=== PATIENT | male | born 2000 | race Caucasian/White ===

== ENCOUNTER 2022-11-23 19:44 | Emergency (ER) | payer MEDICAID, SELFPAY ==
[2022-11-23 19:45] VITALS: BP 140/81; PULSE 123; RESP 18; TEMP 36.8; O2SAT 96; BMI 42.0
--- NOTE | 2022-11-23 19:58 | ED.VIS.GI ---
HPI HPI - GI History of Present Illness Chief Complaint: Diarrhea Informant: patient and parent Narrative Narrative: Patient presents with nausea vomiting diarrhea. Patient states he started with some diarrhea yesterday morning. He also had some nausea with it. He did vomit. But he was able to eat ham some vegetables and mashed potatoes tonight and he kept it down. He denies known fever but has felt hot and cold at times. He thinks this is related to eating bad pizza. However his mother also had nausea vomiting diarrhea that lasted for about a day or 2 last week. Her symptoms are resolved. He does have abdominal pain but describes it as diffuse all over and is never localized. He does not have it now. He has never had abdominal surgery. He has no history of Crohn's or ulcerative colitis in the family. He has had no trauma. He thinks he has had slightly less urine output than normal but no dysuria or odor. Shortly before arrival he had a bowel movement that had some streaks of red blood in it. That is what prompted him to come in now. He has never vomited blood. He has no history of ulcer disease. No known history of any AVMs or other intra-abdominal process/abnormality. [facility] Medical History (Updated 11/23/22 @ 21:[address] Saman Becerra MD) ADHD Home Medications ondansetron 4 mg disintegrating tablet 4 mg PO Q8H PRN PRN Nausea #10 tabs 11/23/22 [Rx Last Taken Unknown] Allergy/AdvReac Type Severity Reaction Status Date / Time No Known Allergies Allergy Verified 11/23/22 19:44 Social History Smoking Status: Never smoker ROS ROS ED ROS Narrative A complete review of systems was performed and is negative except as documented in the history of present illness. Some specific details below. Constitutional: No recent fevers but he has felt hot and cold at times. EYE: No visual complaints or pain. No change in eye color. ENT: No difficulty swallowing. No swelling. No pain. Denies symptoms consistent with GERD. CV: No chest pain or palpitations. Respiratory: No dyspnea. No hemoptysis. No difficulty taking breaths. GI: Please see history of present illness. : No frequency dysuria or hematuria. He thinks he is actually urinating a little bit less than normal. But no change in color. Musculoskeletal: No recent trauma. No pains. Skin: No rash. Nondiaphoretic. Neuro: No weakness or numbness. Endocrine: No polyuria or polydipsia. EXAM Physical Exam Narrative Exam Narrative: CONSTITUTIONAL: Patient is nontoxic in appearance. The patient looks comfortable. HEENT: No notable trauma. Mucous membranes mildly dry. EYES: No conjunctival injection. No icterus. CARDIOVASCULAR: Regular rate at this time. It is about 95. Regular rhythm. No notable murmur. No JVD. RESPIRATORY: No respiratory distress. Breathing is unlabored. No wheezes. No rhonchi. No rales. No pain with a deep breath. GASTROINTESTINAL: Obese but not distended. Bowel sounds are normal. No tenderness. No guarding. No rebound. No palpable mass. No bruit. His exam is actually quite benign. GENITOURINARY: No tenderness over the bladder. No CVA tenderness. MUSCULOSKELETAL: Atraumatic. No peripheral edema. NEUROLOGICAL: Patient is alert and appropriate. No focal deficit noted. SKIN: No noted rashes. No diaphoresis. PSYCHIATRIC: Patient is calm. Mood is appropriate. Const Vital Signs: 11/23/22 19:45 11/23/22 20:27 11/23/22 20:55 Temperature 98.2 F Temperature Source Temporal Pulse Rate 123 H 106 H Respiratory Rate 18 16 16 Blood Pressure 140/81 H 124/77 H Blood Pressure Mean 100 92 Pulse Ox 96 100 Oxygen Delivery Method Room Air MDM MDM MDM Narrative Medical decision making narrative: Patient CBC is normal other than slightly high hemoglobin likely due to some hemoconcentration.Patient CBC is normal other than slightly high hemoglobin likely due to some hemoconcentration. Lites and white count are normal. Patient's electrolytes show mildly low potassium which was replaced. Renal function was preserved. Glucose is only minimally high at 112. Liver function test showed nonspecific elevation of AST and ALT. Alkaline phosphatase is normal. He has no right upper quadrant tenderness. Patient's lipase is normal. Patient is given IV fluids. When I went in to see him he is drinking water and eating ice. He states he feels fine and wants to go. He does not even want to wait for the IV fluids. I will write for some Zofran. I think this is likely viral since he had chills earlier on and his mother had some similar symptoms. If he has further bleeding, lightheadedness, worsening fevers constant pain or localization of pain or other concerns he should return. Lab Data Attestation: I reviewed the patient's lab results. Labs: Laboratory Results - last 24 hr 11/23/22 20:24 WBC 8.9 RBC 5.78 Hgb 17.9 H Hct 50.0 MCV 86.5 MCH 31.0 MCHC 35.8 RDW Std Deviation 37.6 RDW Coeff of Chiquita 11.9 Plt Count 255 MPV 10.5 Immature Gran % (Auto) 0.300 Neut % (Auto) 64.0 Lymph % (Auto) 18.4 L Boundary % (Auto) 11.9 H Eos % (Auto) 4.8 Baso % (Auto) 0.6 Absolute Neuts (auto) 5.7 Absolute Lymphs (auto) 1.64 Nucleated RBC % 0 Sodium 138 Potassium 3.2 L Chloride 108 H Carbon Dioxide 21.0 Anion Gap 9 BUN 11 Creatinine 0.73 Estim Creat Clear Calc 145.66 Est GFR (MDRD) Af Amer 174 Est GFR (MDRD) Non-Af 144 BUN/Creatinine Ratio 15.0 Glucose 112 H Calcium 8.8 Total Bilirubin 0.80 AST 63 H ALT 152 H Alkaline Phosphatase 72 Total Protein 7.7 Albumin 3.6 Globulin 4.1 Albumin/Globulin Ratio 0.9 Lipase 14 EKG Initial EKG: Comments: My independent interpretation the patient's EKG shows sinus rhythm with tachycardic rate at 105. No ventricular ectopy. No preexcitation. No acute ST elevation or depression. GA interval, QRS duration and QTc are normal. Discharge Plan Triage Chief Complaint: Diarrhea ED Provider: Saman Becerra Dx/Rx/DC Orders Clinical Impression: Nausea vomiting and diarrhea, Mild dehydration, Hypokalemia Instructions: ED Diet Vomiting Diarrhea Prescriptions: New ondansetron [ondansetron] 4 mg tablet,disintegrating 4 mg PO Q8H PRN PRN (Reason: Nausea) Qty: 10 0RF Primary Care Provider: Care Physician,No Primary Referrals: Olivia Eubanks DO [Med Staff - Active Staff] - 3-5 Days if not improving Care Physician,No Primary [Primary Care Provider] - Disposition Disposition: Home, Self Care
[2022-11-23] MEDS: 0.9% Normal Saline 1,000 ML 1000 ML IV (20:23)
[2022-11-23] MEDS: Ondansetron 4 MG/2 ML Vial IV (20:23)
[2022-11-23 20:27] VITALS: RESP 16
[2022-11-23 20:29] LABS: Absolute Lymphocyte Count 1.64 X10^3/uL (0.83-4.51); Absolute Neutrophil Count 5.7 X10^3/uL (2.0-7.7); Basophil# 0.05 X10^3/uL; Basophil% 0.6 % (0-1); Eosinophil# 0.43 X10^3/uL; Eosinophils% 4.8 % (0-5); Hemoglobin 17.9 g/dL (13.0-16.5); Lymphocyte # 1.64 X10^3/ul (0.83-4.51); Lymphocyte % 18.4 % (19-41); Mean Corp Hgb Conc 35.8 g/dL (32-36); Mean Corpuscular Volume 86.5 fL (80-94); Mean Platelet Vol. 10.5 fl (6.2-12.0); Monocyte# 1.06 X10^3/uL; Monocyte% 11.9 % (0-10); NRBC Flagged by Analyzer 0 % (0-5); Neutrophil # 5.69 X10^3/uL (2.7-7.7); Platelet Count 255 K/mm3 (150-450); RBC Distribution Width CV 11.9 % (11.6-14.6); RBC Distribution Width SD 37.6 fl (35.1-43.9); Red Blood Count 5.78 M/mm3 (4.6-6.2); White Blood Count 8.9 K/mm3 (4.4-11.0)
[2022-11-23 20:51] LABS: ALB/GLOB Ratio 0.9 RATIO (0.9-2.4); AST(SGOT) 63 U/L (15-37); Alanine Aminotransfer ALT/SGPT 152 U/L (16-61); Albumin, Serum 3.6 g/dL (3.2-5.0); Alkaline Phosphatase 72 U/L (45-117); Anion Gap 9 (5-15); BUN 11 mg/dL (7-18); Calcium,Total 8.8 mg/dL (8.5-10.1); Chloride 108 mmol/L (98-107); Creatinine, Serum 0.73 mg/dL (0.70-1.30); EST Glomerular Filtration Rate 144 mL/min (>60); Est Glom Filt Rate - Afr Amer 174 mL/min (>60); Estimated Creatinine Clearance 145.66 ml/min; Globulin 4.1 g/dL (2.2-4.2); Glucose 112 mg/dL (74-106); Lipase 14 U/L (13-75); Potassium 3.2 mmol/L (3.5-5.1); Protein, Total 7.7 g/dL (6.4-8.2); Sodium Level 138 mmol/L (136-145)
[2022-11-23 20:55] VITALS: BP 124/77; PULSE 106; RESP 16; O2SAT 100
[2022-11-23] MEDS: Potassium Chloride Oral Tablet 20 MEQ PO (21:00)
[2022-11-23 21:18] VITALS: BP 133/84; PULSE 96; RESP 16; O2SAT 94
== END 2022-11-23 21:23 | disposition home or self-care (01) ==
PROVIDERS: Emergency Provider Emergency Medicine; Visit Provider Emergency Medicine
DX: R11.2 Nausea with vomiting, unspecified (principal); R19.7 Diarrhea, unspecified; E86.0 Dehydration; E87.6 Hypokalemia
CPT/HCPCS: 80053; 83690; 85025; 93005; 96361; 96374; 99283; J7030; J2405